=== PATIENT | male | born 2000 ===

== ENCOUNTER → 2023-03-30 | Outpatient (CLI) | payer BC ==
[2023-04-02 20:08] LABS: QUANTIFERON MITOGEN VALUE >10.00 IU/mL (.); QUANTIFERON NIL VALUE 0.04 IU/mL (.); QUANTIFERON TB1 AG VALUE 0.12 IU/mL (.); QUANTIFERON TB2 AG VALUE 0.11 IU/mL (.); QUANTIFERON-TB GOLD PLUS Negative (Negative)
== END | disposition home or self-care (01) ==
LOC: LAB 18:27 → LAB SHORT 18:27
PROVIDERS: Family Medicine
DX: Z11.1 Encounter for screening for respiratory tuberculosis (principal)
CPT/HCPCS: 86480